=== PATIENT | female | born 1990 | race Caucasian/White ===

== ENCOUNTER 2016-10-09 17:02 | Emergency (ER) | payer BC, OTHER ==
[2016-10-09 17:15] VITALS: BP 147/80
--- NOTE | 2016-10-09 17:41 | UC ---
Skin Complaint HPI - HPI Summary HPI Summary: 25 y/o female presents to the urgent care c/o of a rash in both of her legs since this morning. Pt also states she has a rash in her back for a couple of weeks that it itches. Pt doesn't recall eating anything different or being outside on the [place] lately. She states she is taking Bactrim PO that was Rx by an Urgent care in [place] 6 day ago for infected piercing in her nose. Infection of nose is now resolving. She never took Bactrim before. Pt denies tongue swelling or chest tightness, fever, SOB, chest pain, N/V/D, abdominal pain. Pt has not other complains - History of Current Complaint Chief Complaint: UCSkin Stated Complaint: RASHES Hx Obtained From: Patient Hx Last Menstrual Period: 09/30/16 ?: No Onset/Duration: Sudden Onset, Lasting Hours, Resolved Skin Exposure Onset/Duration: Hours Ago - when she woke up she notice rash in her legs Onset Severity: Mild Current Severity: Moderate Pain Intensity: 0 Pain Scale Used: 0-10 Numeric Location: Diffuse - B/L legs Character: Pruritus, Redness - discrete red papules Alleviating: Nothing Associated Signs & Symptoms: Positive: Negative. Negative: Vomiting, Numbness, Fever, Hoarseness, Throat Tightening Related History: Recent change in medication - Pt taking Bactrim for the first time - Allergy/Home Medications Allergies/Adverse Reactions: Allergies Allergy/AdvReac Type Severity Reaction Status Date / Time No Known Allergies Allergy Verified 10/09/16 17:14 Home Medications: Home Medications Levonorgestrel & Eth Estradiol [Falmina 0.1-20 mg-Mcg] 1 tab PO DAILY 10/09/16 [ History Confirmed 10/09/16] Review of Systems Constitutional: Negative Skin: Rash - B/L leg rash and back with a different rash Eyes: Negative ENT: Negative Respiratory: Negative Cardiovascular: Negative Gastrointestinal: Negative Genitourinary: Negative Motor: Negative Neurovascular: Negative Musculoskeletal: Negative Neurological: Negative Psychological: Negative All Other Systems Reviewed And Are Negative: Yes PMH/Surg Hx/FS Hx/Imm Hx Previously Healthy: Yes - Surgical History Surgical History: None - Family History Known Family History: Positive: Hypertension - Social History Occupation: Employed Full-time Lives: With Family Alcohol Use: Occasionally Substance Use Type: None Smoking Status (MU): Never Smoked Tobacco Physical Exam Triage Information Reviewed: Yes Appearance: Well-Appearing, No Pain Distress, Well-Nourished, Obese Vital Signs: Initial Vital Signs Temp 97.4 F 10/09/16 17:11 Pulse 78 10/09/16 17:11 Resp 16 10/09/16 17:11 BP 147/80 10/09/16 17:11 Pulse Ox 99 10/09/16 17:11 Vital Signs Reviewed: Yes Eye Exam: Normal Eyes: Positive: Conjunctiva Clear - PERRLA< EOMI, fundi grossly normal ENT Exam: Normal ENT: Positive: Normal ENT inspection, Hearing grossly normal, Pharynx normal, TMs normal Dental Exam: Normal Neck exam: Normal Neck: Positive: Supple, Nontender, No Lymphadenopathy Respiratory Exam: Normal Respiratory: Positive: Chest non-tender, Lungs clear, Normal breath sounds, No respiratory distress Cardiovascular Exam: Normal Cardiovascular: Positive: RRR, No Murmur, Pulses Normal, Brisk Capillary Refill Abdominal Exam: Normal Abdomen Description: Positive: Nontender, No Organomegaly, Soft. Negative: CVA Tenderness (R), CVA Tenderness (L) Bowel Sounds: Positive: Present Musculoskeletal Exam: Normal Musculoskeletal: Positive: Strength Intact, ROM Intact, No Edema Neurological Exam: Normal Psychological Exam: Normal Skin: Positive: rashes - B/L with diffuse erythematous papules, non tender to palpation, no swelling observed. Back with a pink erythematous eruption in a classical destin tree distrbution w/ the oval herald patch about 6cm in size with raise border and scaling observed. Course/Dx - Course Course Of Treatment: 25 y/o female presents to the urgent care c/o of a rash in both of her legs since this morning. Pt also states she has a rash in her back for a couple of weeks that it itches. Pt doesn't recall eating anything different or being outside [place] the [place] lately. She states she is taking Bactrim PO that was Rx by an Urgent care in [place] 6 day ago for infected piercing in her nose. Infection of nose is now resolving. She never took Bactrim before. Pt denies tongue swelling or chest tightness, fever, SOB, chest pain, N/V/D, abdominal pain. Hx Obtained. Most likely allergic reaction to the Bactrim PO. Pt advised to stop the ABX. Rx Prednisone Po and Benadryl PO to alleviate symptoms. Pt also with Pityriasis Rosea, Pt advised it is a self limiting rash . Rx hidrocortisone topical cream to alleviate symptoms. Advised if symptoms do not improve or worsen to return to urgent care or f/u with PCP for further management - Differential Diagnoses - Skin Complaint Differential Diagnoses: Allergic Reaction, Contact Dermatitis, Drug Rash, Eczema , Scarlatina, Urticaria, Other - Pityriasis Rosea, - Diagnoses Provider Diagnoses: 1- Acute rash s/p antibiotic. 2- Pityriasis Rosea Discharge - Discharge Plan Condition: Stable Disposition: HOME Prescriptions: Hydrocortisone 1% CREAM* [Hytone Cream 1%*] 1 applic TOPICAL BID #1 tube diPHENhydraMINE PO* [Benadryl PO 25 MG TAB*] 25 mg PO TID PRN #15 tab PRN Reason: Pruritis predniSONE TAB* [Deltasone TAB*] 20 mg PO DAILY #11 tab Patient Education Materials: Acute Rash (ED), Pityriasis rosea (ED) Referrals: Jordon Danielson MD [Primary Care Provider] - If Needed Additional Instructions: 1- Please stop taking Bactrim PO. Take medications as directed to alleviate symptoms. 2- The Pityriasis Rosea is a self limiting rash. However, you can apply the hydrocrotisone topical cream sparingly to the affected area to alleviate symptoms. 3- If not improvement or rash please f/u with your PCP or return to the urgent care for further evaluation and treatment.
== END 2016-10-09 18:15 | disposition home or self-care (01) ==
LOC: UCEAST 17:02
DX: L27.1 Localized skin eruption due to drugs and medicaments taken internally (principal); T37.0X5A Adverse effect of sulfonamides, initial encounter; Y92.9 Unspecified place or not applicable; L42 Pityriasis rosea; E66.9 Obesity, unspecified
CPT/HCPCS: 99212; G0463

== ENCOUNTER 2017-04-14 11:02 | Emergency (ER) | payer OTHER ==
[2017-04-14 11:32] VITALS: BP 137/74
--- NOTE | 2017-04-14 12:23 | UC ---
Laceration HPI - HPI Summary HPI Summary: Pt presents with laceration to her left index finger sustained about 1 hour ago. 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 Mild bleeding was stopped with direct pressure. Denies numbness or tingling. Last tetanus was within the last 2 years. - History Of Current Complaint Chief Complaint: UCUpperExtremity Stated Complaint: FINGER LAC Time Seen by Provider: 04/14/17 12:23 Hx Obtained From: Patient Hx Last Menstrual Period: 03/17/17 Laceration Location: Finger Mechanism Of Injury: Sharp Trauma Onset/Duration: Sudden Onset Severity: Moderate Pain Intensity: 5 Pain Scale Used: 0-10 Numeric - Allergies/Home Medications Allergies/Adverse Reactions: Allergies Allergy/AdvReac Type Severity Reaction Status Date / Time Sulfa (Sulfonamide Allergy Hives Verified 04/14/17 11:33 Antibiotics) Home Medications: Home Medications l-Norgest/E.estradiol-E.estrad [Seasonique 0.15-0.03-0.01 Tab] 04/14/17 [ History] PMH/Surg Hx/FS Hx/Imm Hx Previously Healthy: Yes - Surgical History Surgical History: None - Family History Known Family History: Positive: Hypertension - Social History Alcohol Use: Occasionally Substance Use Type: None Smoking Status (MU): Never Smoked Tobacco Review of Systems Constitutional: Negative Skin: Other - Finger laceration Respiratory: Negative Cardiovascular: Negative Neurological: Negative Psychological: Negative All Other Systems Reviewed And Are Negative: Yes Physical Exam Triage Information Reviewed: Yes Appearance: Well-Appearing, No Pain Distress, Well-Nourished Vital Signs: Initial Vital Signs Temp 98.0 F 04/14/17 11:28 Pulse 56 04/14/17 11:28 Resp 18 04/14/17 11:28 BP 137/74 04/14/17 11:28 Pulse Ox 100 04/14/17 11:28 Vital Signs Reviewed: Yes Neck: Positive: Supple, Nontender, No Lymphadenopathy Respiratory: Positive: Lungs clear, Normal breath sounds, No respiratory distress, No accessory muscle use Cardiovascular: Positive: RRR, No Murmur, Pulses Normal Musculoskeletal: Positive: Strength Intact - Left index finger, ROM Intact - Left index finger, No Edema - Left index finger Neurological: Positive: Alert, Other: - Sensations intact Left index finger Psychological: Positive: Age Appropriate Behavior Skin: Positive: Other - 2mm linear very superficial laceration to left distal index finger. The epidermis was sliced and there is no FB or bleeding. Laceration Repair - Laceration Repair 1 Description: Linear Laceration Size After Repair: Length (cm) - 0.2 Modified For Repair: No Cleansing Completed Via Routine Prep: Yes Closure Material: Skin Adhesive Closure Method: Single Layer Laceration Course/Dx - Course/Dx Course Of Treatment: Area was irrigated with 30mL of NS. Dermabond applied and telfa dressing. No need for sutures. - Differential Dx - Laceration/Wound Provider Diagnoses: Left index finger laceration Discharge - Discharge Plan Condition: Stable Disposition: HOME Patient Education Materials: Laceration (DC) Referrals: Jordon Danielson MD [Primary Care Provider] - Additional Instructions: If you develop a fever, shortness of breath, chest pain, new or worsening symptoms - please call your PCP or go to the ED. Your blood pressure was high at todays visit. Please see your primary provider within 4 weeks for recheck and re-evaluation.
== END 2017-04-14 12:35 | disposition home or self-care (01) ==
LOC: UCEAST 11:02
DX: S61.211A Laceration without foreign body of left index finger without damage to nail, initial encounter (principal); Y92.9 Unspecified place or not applicable; W26.8XXA Contact with other sharp object(s), not elsewhere classified, initial encounter
CPT/HCPCS: 99211; G0463